=== PATIENT | female | born 1950 | race African-American/Black ===

== ENCOUNTER 2018-09-19 09:35 | Emergency (ER) | payer MEDICARE, OTHER ==
[~2018-09-19] VITALS: Ht 167.6 cm; Wt 60.0 kg
[2018-09-19 09:49] VITALS: BP 150/93
== END 2018-09-19 13:29 | disposition left against medical advice (07) ==
LOC: ER 09:35
DX: Z53.21 Procedure and treatment not carried out due to patient leaving prior to being seen by health care provider (principal)